=== PATIENT | female | born 1955 | race Caucasian/White ===

== ENCOUNTER 2020-11-15 08:47 | Observation (INO) ==
[2020-11-15] MEDS ORDERED: *HR* FentaNYL (PF) 100 MCG/2 ML VIAL IVP ONE (08:54)
[2020-11-15 09:18] LABS: Basophils # 0.1 K/mcL (0.0-0.2); Basophils % 0.4 %; Eosinophils # 0.1 K/mcL (0.0-0.6); Eosinophils % 0.9 %; Hematocrit 42.4 % (35.3-44.9); Hemoglobin 14.2 g/dL (11.5-15.4); Immature Granulocytes % 0.4 % (0-4); Lymphocytes # 3.2 K/mcL (0.6-4.6); Lymphocytes % 24.5 %; Mean Corpuscular HGB Conc 33.5 g/dL (31.6-35.5); Mean Corpuscular Hemoglobin 31.3 pg (28.0-33.3); Mean Corpuscular Volume 93.6 fL (83.0-100.0); Mean Platelet Volume 9.5 fL (9.4-12.4); Monocytes # 0.9 K/mcL (0.0-1.3); Monocytes % 6.9 %; Neutrophils # 8.8 K/mcL (1.6-8.9); Platelet Count 323 K/mcL (140-400); Red Blood Count 4.53 M/mcL (3.82-4.97); Red Cell Distribution Width 13.5 % (11.5-14.5); Segmented Neutrophils % 66.9 %; White Blood Count 13.1 K/mcL (4.3-11.1)
[2020-11-15 09:25] LABS: Activated Partial Thrombo Time 28.6 Seconds (26.0-36.0)
[2020-11-15 09:33] LABS: BUN/Creatinine Ratio 12 (6-26); Blood Urea Nitrogen 11 mg/dL (8-23); Calcium 9.3 mg/dL (8.6-10.3); Carbon Dioxide 23 mEq/L (23-29); Chloride 103 mEq/L (98-107); Creatine Kinase 391 Units/L (30-223); Glucose 109 mg/dL (70-105); Osmolality,Calculated 286 (280-300); Potassium 3.6 mEq/L (3.5-5.1); Sodium 138 mEq/L (136-145); eGFR For African Americans > 60 (> 60); eGFR For Non-African Americans > 60 (> 60)
[2020-11-15 09:40] LABS: Troponin I < 0.03 ng/mL (< 0.04)
[2020-11-15 09:49] LABS: INR 1.2; Prothrombin Time 14.2 Seconds (9.4-12.1)
[2020-11-15] MEDS ORDERED: Ringers Solution, Lactated 1,000 ML IVC SCH (10:15)
[2020-11-15 11:05] LABS: Estimated Average Glucose 111 mg/dl; Hemoglobin A1C 5.5 %
[2020-11-15 11:06] LABS: Thyroid Stimulating Hormone 1.526 mcIU/mL (0.340-5.600)
[2020-11-15] MEDS ORDERED: Acetaminophen 325 MG TABLET PO PRN ×2 (11:15→23:33)
[2020-11-15] MEDS ORDERED: Ondansetron 4 MG/2 ML VIAL IVP PRN (11:15)
[2020-11-15] MEDS: Aspirin 81 MG TAB.CHEW PO SCH (11:40)
[2020-11-15] MEDS ORDERED: Isovue-370 500 ML BOTTLE IVP ONE (12:12)
[2020-11-15 15:33] LABS: Bilirubin,Urine Negative (Negative); Blood,Urine Negative (Negative); Clarity,Urine Clear (Clear); Color,Urine Yellow (Yellow); Glucose,Urine (UA) Normal (Normal); Ketones,Urine Negative (Negative); Leukocyte Esterase,Urine Negative (Negative); Nitrite,Urine Negative (Negative); Protein,Urine Trace mg/dL (Neg-Trace); Specific Gravity,Urine 1.019 (1.010-1.025); Urobilinogen,Urine Normal (Normal)
[2020-11-15] MEDS: Gabapentin 300 MG CAPSULE PO SCH ×2 (16:56→19:25)
[2020-11-15] MEDS: *HR* HYDROcodone/Acet 5/325 mg TABLET PO PRN ×2 (17:05→21:20)
[2020-11-16] MEDS: *HR* OxyCODONE Immed Rel 5 MG TABLET PO PRN ×2 (03:40→10:22)
[2020-11-16] MEDS ORDERED: *HR* Enoxaparin 40 MG/0.4 ML SYRINGE SQ SCH (06:00)
[2020-11-16] MEDS ORDERED: Levothyroxine 25 MCG TABLET PO SCH (06:30)
[2020-11-16 08:22] LABS: Hematocrit 38.2 % (35.3-44.9); Mean Corpuscular Hemoglobin 30.1 pg (28.0-33.3); Mean Corpuscular Volume 91.2 fL (83.0-100.0); Mean Platelet Volume 10.1 fL (9.4-12.4); Platelet Count 270 K/mcL (140-400); Red Blood Count 4.19 M/mcL (3.82-4.97); Red Cell Distribution Width 13.7 % (11.5-14.5); White Blood Count 12.2 K/mcL (4.3-11.1)
[2020-11-16 08:23] LABS: Hemoglobin 12.6 g/dL (11.5-15.4)
[2020-11-16] MEDS: Aspirin 81 MG TAB.CHEW PO SCH (09:09)
[2020-11-16] MEDS: Gabapentin 300 MG CAPSULE PO SCH (09:10)
[2020-11-16 11:01] LABS: BUN/Creatinine Ratio 23 (6-26); Blood Urea Nitrogen 18 mg/dL (8-23); Calcium 9.9 mg/dL (8.6-10.3); Carbon Dioxide 26 mEq/L (23-29); Chloride 102 mEq/L (98-107); Creatine Kinase 311 Units/L (30-223); Glucose 99 mg/dL (70-105); Magnesium 2.1 mg/dL (1.6-2.6); Osmolality,Calculated 284 (280-300); Potassium 4.1 mEq/L (3.5-5.1); Sodium 136 mEq/L (136-145); eGFR For African Americans > 60 (> 60); eGFR For Non-African Americans > 60 (> 60)
[2020-11-16 11:35] VITALS: BP 143/87
[2020-11-16] MEDS: *HR* HYDROcodone/Acet 5/325 mg TABLET PO PRN (14:23)
== END 2020-11-16 14:35 | disposition home or self-care (01) ==
LOC: EMEROOARM 08:47 → CDU 08:47 → SUATTDRO 10:42 → CDU 10:59
PROVIDERS: ADMIT Internal Medicine; ATTEND Internal Medicine